=== PATIENT | male | born 1980 | race American Indian/Alaskan Native ===

== ENCOUNTER 2020-10-26 23:49 | Emergency (ER) | payer OTHER ==
--- NOTE | 2020-10-27 01:07 | Emergency Department Report ---
ED Chest Pain HPI - General Chief Complaint: Chest Pain Stated Complaint: CHEST TIGHTNESS/BODY TINGLING Time Seen by Provider: 10/27/20 00:56 Source: patient Mode of arrival: Ambulatory Limitations: No Limitations - History of Present Illness Initial Comments: This is a 39-year-old -[place] male presents to the emergency department with a complaint of some chest discomfort that he describes as a fluttering sensation that began about 2 to 3 hours ago. The patient says that he has some associated warmth across his abdomen and there was some tingling in his lower extremities. There was also some transient lightheadedness/dizziness. He salome es any shortness of breath, fever, cough, back pain, lower extremity swelling, weakness, headache, vision change, slurred speech. He has not taken anything for symptoms prior to presentation. He has a past medical history of [id number] diabetes for which he takes Metformin. He is a tobacco smoker. He denies any family history of early cardiac disease or MD. He follows with [facility] primary care in [place]. 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 No sick contacts at home. - Related Data Allergies Allergy/AdvReac Type Severity Reaction Status Date / Time No Known Allergies Allergy Unverified 10/27/20 01:06 Heart Score - HEART Score History: Slightly suspicious EKG: Normal Age: < 45 Risk factors: 1-2 risk factors Troponin: < normal limit HEART Score: 1 - Critical Actions Critical Actions: 0-3 pts:0.9-1.7%risk of adverse cardiac event.Candidate for discharge ED Review of Systems ROS: Stated complaint: CHEST TIGHTNESS/BODY TINGLING Other details as noted in HPI Comment: All other systems reviewed and negative Constitutional: denies: chills, fever Eyes: denies: eye pain, vision change ENT: denies: ear pain, throat pain Respiratory: denies: cough, shortness of breath Cardiovascular: chest pain, palpitations. denies: edema Gastrointestinal: denies: nausea, vomiting Genitourinary: denies: dysuria, discharge Musculoskeletal: denies: back pain, arthralgia Skin: denies: rash, lesions Neurological: paresthesias, other (Dizziness/lightheadedness). denies: headache, weakness ED Past Medical Hx - Past Medical History Previous Medical History?: No - Surgical History Past Surgical History?: No - Social History Smoking Status: Current Every Day Smoker ED Physical Exam - General Limitations: No Limitations - Other Other exam information: GENERAL: The patient is well-developed well-nourished. HENT: Normocephalic. Atraumatic. Patient has moist mucous membranes. EYES: Extraocular motions are intact. NECK: Supple. Trachea is midline. CHEST/LUNGS: Clear to auscultation. There is no respiratory distress noted. HEART/CARDIOVASCULAR: Regular. There is no tachycardia. There is no murmur. ABDOMEN: Abdomen is soft, nontender. Patient has normal bowel sounds. SKIN: Skin is warm and dry. NEURO: The patient is awake, alert, and oriented. The patient is cooperative. The patient has no focal neurologic deficits. Normal speech. Cranial nerves II through XII grossly intact. MUSCULOSKELETAL: There is no tenderness or deformity. There is no limitation range of motion. ED Course Vital Signs 10/27/20 10/27/20 10/27/20 00:43 00:50 01:01 Temperature 98.3 F Pulse Rate 69 66 60 Respiratory 18 14 9 L Rate Blood Pressure 110/63 119/67 O2 Sat by Pulse 95 Oximetry 10/27/20 10/27/20 10/27/20 01:15 01:31 01:45 Temperature Pulse Rate 59 L 64 64 Respiratory 12 15 10 L Rate Blood Pressure 112/68 112/68 112/68 O2 Sat by Pulse Oximetry 10/27/20 10/27/20 10/27/20 02:01 02:15 02:30 Temperature Pulse Rate 62 59 L 60 Respiratory 16 16 16 Rate Blood Pressure 112/68 111/71 119/67 O2 Sat by Pulse Oximetry 10/27/20 10/27/20 02:45 03:09 Temperature Pulse Rate 59 L Respiratory 16 Rate Blood Pressure 111/71 111/71 O2 Sat by Pulse Oximetry SHOLA score - Shola Score Age > 65: (0) No Aspirin use within the Past 7 Days: (0) No 3 or more CAD Risk Factors: (0) No 2 or more Angina events in past 24 hrs: (0) No Known CAD with more than 50% Stenosis: (0) No Elevated Cardiac Markers: (0) No ST Deviation Greater than 0.5mm: (0) No SHOLA Score: 0 ED Medical Decision Making - Lab Data Result diagrams: 10/27/20 01:13 10/27/20 01:13 Lab Results 10/27/20 10/27/20 10/27/20 Range/Units 01:13 01:13 01:13 WBC 12.1 H (4.5-11.0) K/mm3 RBC 4.69 (3.65-5.03) M/mm3 Hgb 14.6 (11.8-15.2) gm/dl Hct 42.3 (35.5-45.6) % MCV 90 (84-94) fl MCH 31 (28-32) pg MCHC 35 H (32-34) % RDW 13.2 (13.2-15.2) % Plt Count 282 (140-440) K/mm3 Lymph % (Auto) 15.2 (13.4-35.0) % Guthrie % (Auto) 7.8 H (0.0-7.3) % Eos % (Auto) 0.8 (0.0-4.3) % Baso % (Auto) 0.2 (0.0-1.8) % Lymph # (Auto) 1.8 (1.2-5.4) K/mm3 Guthrie # (Auto) 0.9 H (0.0-0.8) K/mm3 Eos # (Auto) 0.1 (0.0-0.4) K/mm3 Baso # (Auto) 0.0 (0.0-0.1) K/mm3 Seg Neutrophils % 76.0 H (40.0-70.0) % Seg Neutrophils # 9.2 H (1.8-7.7) K/mm3 D-Dimer 61.7 (0-234) ng/mlDDU Sodium 139 (137-145) mmol/L Potassium 4.2 (3.6-5.0) mmol/L Chloride 103.7 (98-107) mmol/L Carbon Dioxide 26 (22-30) mmol/L Anion Gap 14 mmol/L BUN 9 (9-20) mg/dL Creatinine 0.9 (0.8-1.3) mg/dL Estimated GFR > 60 ml/min BUN/Creatinine Ratio 10 % Glucose 112 H (75-100) mg/dL Calcium 8.8 (8.4-10.2) mg/dL Total Bilirubin 0.50 (0.1-1.2) mg/dL AST 14 (5-40) units/L ALT 16 (7-56) units/L Alkaline Phosphatase 81 (35-129) units/L Troponin T < 0.010 (0.00-0.029) ng/mL Total Protein 6.3 (6.3-8.2) g/dL Albumin 4.0 (3.9-5) g/dL Albumin/Globulin Ratio 1.7 % TSH (0.270-4.200) mlU/mL 10/27/20 Range/Units 01:13 WBC (4.5-11.0) K/mm3 RBC (3.65-5.03) M/mm3 Hgb (11.8-15.2) gm/dl Hct (35.5-45.6) % MCV (84-94) fl MCH (28-32) pg MCHC (32-34) % RDW (13.2-15.2) % Plt Count (140-440) K/mm3 Lymph % (Auto) (13.4-35.0) % Guthrie % (Auto) (0.0-7.3) % Eos % (Auto) (0.0-4.3) % Baso % (Auto) (0.0-1.8) % Lymph # (Auto) (1.2-5.4) K/mm3 Guthrie # (Auto) (0.0-0.8) K/mm3 Eos # (Auto) (0.0-0.4) K/mm3 Baso # (Auto) (0.0-0.1) K/mm3 Seg Neutrophils % (40.0-70.0) % Seg Neutrophils # (1.8-7.7) K/mm3 D-Dimer (0-234) ng/mlDDU Sodium (137-145) mmol/L Potassium (3.6-5.0) mmol/L Chloride (98-107) mmol/L Carbon Dioxide (22-30) mmol/L Anion Gap mmol/L BUN (9-20) mg/dL Creatinine (0.8-1.3) mg/dL Estimated GFR ml/min BUN/Creatinine Ratio % Glucose (75-100) mg/dL Calcium (8.4-10.2) mg/dL Total Bilirubin (0.1-1.2) mg/dL AST (5-40) units/L ALT (7-56) units/L Alkaline Phosphatase (35-129) units/L Troponin T (0.00-0.029) ng/mL Total Protein (6.3-8.2) g/dL Albumin (3.9-5) g/dL Albumin/Globulin Ratio % TSH 1.540 (0.270-4.200) mlU/mL - EKG Data -: EKG Interpreted by Me EKG shows normal: sinus rhythm, axis, intervals, QRS complexes, ST-T waves Rate: normal - EKG Data When compared to previous EKG there are: previous EKG unavailable Interpretation: normal EKG - Radiology Data Radiology results: image reviewed interpreted by me: Chest x-ray does not show any acute process. There are no pleural effusions, obvious pneumonia and there is no pneumothorax. No significant cardiomegaly. - Medical Decision Making This patient presents to the emergency department with a complaint of having some type of fluttering sensation in the middle of his chest, some paresthesias in the lower extremities, and some dizziness/lightheadedness, that occurred this evening. At the time of my examination the patient is mostly asymptomatic but describes the symptoms that brought him to the emergency department. On examination the patient does not have any focal, motor or sensory deficits and his cranial nerves are intact. Heart and lung sounds are normal to auscultation. EKG is normal without morphology consistent with ST elevation myocardial infarction or any arrhythmia. Chest x-ray does not show any pneumonia, pleural effusions, pneumothorax, or any acute process. The patient's labs have been unremarkable including CBC, metabolic panel, thyroid level, negative troponin, negative D-dimer level. Vital signs have been reassuring throughout his ED course including being afebrile. The patient was reevaluated multiple times over multiple hours and there has been no return of the previously mentioned symptoms. For these reasons patient appears safe for discharge home at this time. His contact information has been sent over to the [facility], and someone from their office should be contacting him shortly for close outpatient follow-up as per our hospitals low risk chest pain protocol. He will return to the emergency department with any return or worsening of his symptoms, or with any acute distress. Critical Care Time: No Critical care attestation.: If time is entered above; I have spent that time in minutes in the direct care of this critically ill patient, excluding procedure time. ED Disposition Clinical Impression: Palpitations, Paresthesias, Light-headed feeling, Atypical chest pain Disposition: DC- TO HOME OR SELFCARE Is pt being admited?: No Condition: Stable Instructions: Paresthesia, Nonspecific Chest Pain, Adult, Palpitations Additional Instructions: Please follow-up with your primary care physician in the next few days. Your contact information has been sent over to the [facility], and someone from their office should be contacting you shortly for close outpatient follow-up. Just in case, I am giving you a referral for one of their medical office receptionist assistant, Dr. Morgan. Return to the emergency department with any worsening of your symptoms, new or concerning symptoms not addressed during this current emergency department visit, or with any acute distress. Referrals: PRIMARY CARE, [Primary Care Provider] - 2-3 Days ANGIE MORGAN MD [Staff Physician] - 2-3 Days Forms: Work/School Release Form(ED) Time of Disposition: 02:25
[2020-10-27 01:34] LABS: Basophils % (Auto) 0.2 % (0.0-1.8); Eosinophils # (Auto) 0.1 K/mm3 (0.0-0.4); Eosinophils % (Auto) 0.8 % (0.0-4.3); Hematocrit 42.3 % (35.5-45.6); Hemoglobin 14.6 gm/dl (11.8-15.2); Lymphocytes # (Auto) 1.8 K/mm3 (1.2-5.4); Lymphocytes % (Auto) 15.2 % (13.4-35.0); Mean Corpuscular HGB Conc 35 % (32-34); Mean Corpuscular Volume 90 fl (84-94); Monocytes # (Auto) 0.9 K/mm3 (0.0-0.8); Monocytes % (Auto) 7.8 % (0.0-7.3); Platelet Count 282 K/mm3 (140-440); Red Blood Count 4.69 M/mm3 (3.65-5.03); Red Cell Distribution Width 13.2 % (13.2-15.2)
--- NOTE | 2020-10-27 01:49 | XRay Report ---
XR chest 1V ap INDICATION / CLINICAL INFORMATION: CP COMPARISON: None available. FINDINGS: SUPPORT DEVICES: None. HEART / MEDIASTINUM: No significant abnormality. LUNGS / PLEURA: Lungs are clear. Costophrenic sulci are sharp. No pneumothorax. ADDITIONAL FINDINGS: No significant additional findings. IMPRESSION: 1. No acute findings. Signer Name: Pepito High MD Signed: 10/27/2020 1:44 AM Workstation Name: [id number]
[2020-10-27 01:55] LABS: Alanine Aminotransferase 16 units/L (7-56); BUN/Creatinine Ratio 10; Blood Urea Nitrogen 9 mg/dL (9-20); Calcium 8.8 mg/dL (8.4-10.2); Hemolysis Index 6
[2020-10-27 03:17] VITALS: BP 111/71
== END 2020-10-27 03:39 | disposition home or self-care (01) ==
LOC: ED 23:49
DX: R07.89 Other chest pain (principal); R00.2 Palpitations; R42 Dizziness and giddiness; R20.2 Paresthesia of skin; F17.200 Nicotine dependence, unspecified, uncomplicated
CPT/HCPCS: 36415; 71045; 80053; 84443; 84484; 85025; 85379; 93005